=== PATIENT | female | born 1985 | race Caucasian/White ===

== ENCOUNTER 2017-01-04 21:03 | Emergency (ER) | payer OTHER ==
[~2017-01-04] VITALS: Ht 170.2 cm; Wt 77.8 kg
[~2017-01-04 21:03] MED LIST: ALBUTEROL SULF8.5 GM IH; ENDOCET 5-3251 EACH PO; IBUPROFEN800 MG PO; KLONOPIN1 M2 PO; NAPROSYN500 MG PO; NOHOMEMEDS; NUCYNTA50 MG PO; OMEPRAZOLE40 M1; PREDNISONE20 MG PO; PRENATAL TABLE1 EAC3 PO; VYVANSE20 MG PO; WELLBUTRIN75 MG PO; XANAX0.5 MG PO; ZANAFLEX2 M1; ~No Medications
[2017-01-04 21:37] LABS: HEMATOCRIT 39.9 % (36.0-46.0); MCH 30.7 PG (29.0-34.0); MCHC 33.1 G/DL (30.0-36.0); MCV 92.8 FL (83-99); MEAN PLAT.VOLUME 11.7 uM^3 (9.5-12.4); PLATELET COUNT 181 K/uL (156-360); RBC DIS.WIDTH-CV 11.6 % (11.8-14.6); RBC DIS.WIDTH-SD 39.6 % (39-53)
[2017-01-04 21:42] LABS: CHLORIDE 107 mEq/L (99-109); SODIUM 139 mEq/L (136-147)
[2017-01-04 21:44] LABS: GLUCOSE 89 mg/dL (70-99)
[2017-01-04 21:45] LABS: ANION GAP 6 MEQ/L (2-14); WHITE BLOOD COUNT 7.3 K/uL (4.1-10.2)
[2017-01-04 21:46] LABS: TOTAL BILIRUBIN 0.2 mg/dL (0.0-1.0)
[2017-01-04 21:47] LABS: ALKALINE PHOSPHATASE 59 IU/L (3-129)
[2017-01-04 21:48] LABS: GFR ESTIMATE (CALCULATED) > 59 mL/min/
[2017-01-04 21:49] LABS: UREA NITROGEN (BUN) 15 mg/dL (9-23)
[2017-01-04 21:56] LABS: QUANTITATIVE HCG < 4.0 MIU/ML
[2017-01-04 22:11] LABS: ADD MIUA? YES; BILIRUBIN NEGATIVE; BLOOD NEGATIVE; COLOR YELLOW ((YELLOW)); GLUCOSE (STRIP) NEGATIVE; KETONES NEGATIVE; LEUKOCYTES TRACE; NITRITE NEGATIVE; PROTEIN (STRIP) NEGATIVE; SPECIFIC GRAVITY 1.021 (1.000-1.030); UROBILINOGEN 0.2 MG/DL (0.2-1.0)
[2017-01-04 22:19] LABS: BACTERIA 3+ /HPF; EPITHELIAL CELLS 1+ /HPF; MUCUS NONE SEEN /LPF; RED BLOOD CELLS 0-5 /HPF (0-5); UCUL ADDED? NO; WHITE BLOOD CELLS 0-5 /HPF (0-5)
[2017-01-04 22:43] VITALS: BP 112/78
== END 2017-01-04 22:46 | disposition home or self-care (01) ==
LOC: RME 21:03 → EME 21:03 → RME 22:46
DX: R53.81 Other malaise (principal); R53.83 Other fatigue; J45.909 Unspecified asthma, uncomplicated; K58.9 Irritable bowel syndrome, unspecified; F17.200 Nicotine dependence, unspecified, uncomplicated
CPT/HCPCS: 80053; 81003; 84702; 85027; 99281; 99283

== ENCOUNTER → 2017-11-25 | Outpatient (CLI) | payer OTHER ==
[~2017-11-25] VITALS: Ht 170.2 cm; Wt 80.0 kg
[~2017-11-25] MED LIST changes: +ADDERALL10 MG PO; +CATAPRES0.1 MG PO; +SYNTHROID50 MCG PO
[2017-11-25 08:22] VITALS: BP 111/65
== END | disposition home or self-care (01) ==
LOC: IVINF 08:00
PROVIDERS: Internal Medicine
DX: E27.40 Unspecified adrenocortical insufficiency (principal)
CPT/HCPCS: 80400; 82024 90; 82533 91; 96374; J0834